=== PATIENT | male | born 1945 | race Caucasian/White ===

== ENCOUNTER → 2021-07-29 | Day surgery (SDC) | payer MEDICARE, OTHER ==
[~2021-07-29] VITALS: Ht 180.3 cm; Wt 79.4 kg
[2021-07-29 08:29] VITALS: BP 149/72
[2021-07-29 09:58] VITALS: BP 134/73
[2021-07-29 10:13] VITALS: BP 143/75
[2021-07-29 10:28] VITALS: BP 139/66
== END | disposition home or self-care (01) ==
LOC: SDC 07-24 10:30
PROVIDERS: ATTEND Ophthalmology
DX: H25.812 Combined forms of age-related cataract, left eye (principal); F17.210 Nicotine dependence, cigarettes, uncomplicated; Z79.899 Other long term (current) drug therapy; Z20.822 Contact with and (suspected) exposure to COVID-19

== ENCOUNTER → 2021-09-02 | Day surgery (SDC) | payer MEDICARE, OTHER ==
[~2021-09-02] VITALS: Ht 180.3 cm; Wt 79.4 kg
[~2021-09-02] MED LIST: OCUFLOX 0.3% 5 M5 ML OPH; PRED FORTE5 ML OP
[2021-09-02 10:51] VITALS: BP 142/66
[2021-09-02 11:06] VITALS: BP 130/70
[2021-09-02 11:19] VITALS: BP 144/71
== END | disposition home or self-care (01) ==
LOC: SDC 08-28 13:15
PROVIDERS: ATTEND Ophthalmology
DX: H25.811 Combined forms of age-related cataract, right eye (principal); F17.210 Nicotine dependence, cigarettes, uncomplicated; Z98.890 Other specified postprocedural states; Z20.822 Contact with and (suspected) exposure to COVID-19

== ENCOUNTER 2023-04-06 14:44 | Emergency (ER) | payer MEDICARE, OTHER ==
[~2023-04-06] VITALS: Wt 81.6 kg
[2023-04-06] MEDS ORDERED: CEPHALEXIN500 M1 PO (18:30)
== END 2023-04-06 18:37 | disposition home or self-care (01) ==
LOC: ED 14:44
DX: S51.011A Laceration without foreign body of right elbow, initial encounter (principal); S61.411A Laceration without foreign body of right hand, initial encounter; Z90.89 Acquired absence of other organs; Z98.890 Other specified postprocedural states; Z98.42 Cataract extraction status, left eye; W19.XXXA Unspecified fall, initial encounter; Y93.H2 Activity, gardening and landscaping; Y92.89 Other specified places as the place of occurrence of the external cause; Y99.8 Other external cause status

== ENCOUNTER → 2023-09-13 | Outpatient (CLI) | payer MEDICARE, OTHER ==
[~2023-09-13] MED LIST changes: +CEPHALEXIN500 M1 PO
== END | disposition home or self-care (01) ==
LOC: MRI 09-07 13:00
PROVIDERS: ATTEND Family Medicine
DX: S46.811A Strain of other muscles, fascia and tendons at shoulder and upper arm level, right arm, initial encounter (principal); M75.51 Bursitis of right shoulder; R60.0 Localized edema; X58.XXXA Exposure to other specified factors, initial encounter; Y93.89 Activity, other specified; Y92.89 Other specified places as the place of occurrence of the external cause; Y99.8 Other external cause status